=== PATIENT | female | born 1945 | race Hispanic/Latino ===

== ENCOUNTER 2017-11-15 14:53 | Emergency (ER) | payer MEDICARE, OTHER ==
[2017-11-15 15:31] VITALS: BP 120/70
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
== END 2017-11-15 18:06 | disposition home or self-care (01) ==
LOC: ED 14:53
DX: M54.9 Dorsalgia, unspecified (principal)
CPT/HCPCS: 99282